=== PATIENT | female | born 1980 | race American Indian/Alaskan Native ===

== ENCOUNTER 2018-04-02 09:31 | Emergency (ER) | payer OTHER ==
[~2018-04-02] VITALS: Ht 157.5 cm; Wt 70.3 kg
[~2018-04-02 09:31] MED LIST: CYCLOBENZAPRINE10 MG PO; CYCLOBENZAPRINE5 MG PO; HYDROCODON-ACE1 EAC8 PO; IBUPROFEN600 MG PO; MELOXICAM7.5 MG PO; METRONIDAZOLE500 MG PO; NORCO 7.5-3251 EACH PO; PERCOCET 5-3251 EACH PO; ZOFRAN ODT4 MG PO
--- OUTSIDE RECORDS SUMMARY | 2018-04-02 09:36 | XMS ---
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 Care History Medical/Surgical 03/22/2018 [facility] - Patient is currently established with [facility]. If patient is seen in the ED during business hours. Please contact CHWs at [facility]. Care Recommendation: This patient has had 5 or more Emergency Department visits in the last 12 months.\T\nbsp; Patient requires education on the scope and purpose of the ED as an acute care provider not a Primary Care Provider and should not be utilized for chronic conditions.\T\nbsp; These are guidelines and the provider should exercise clinical judgment when providing care. E.D. V[facility] (12 MO.) [facility] TOTAL 5 NOTE: Visits indicate total known visits. ED/UCC VISIT TRACKING (12 MO.) 04/02/2018 09:31 NILAM Domingo [place] TYPE: Emergency COMPLAINT: - ABD PAIN WITHOUT BM 03/19/2018 13:20 [facility] Alexandra CANO TYPE: Emergency DIAGNOSES: - Fall - Wedge compression fracture of unspecified lumbar vertebra, initial encounter for closed fracture - Sprain of unspecified ligament of left ankle, initial encounter 03/19/2018 08:54 NILAM Cortes TYPE: Emergency COMPLAINT: - FALL,LOW BACK PAIN DIAGNOSES: - Nicotine dependence, unspecified, uncomplicated - Strain of muscle, fascia and tendon of lower back, initial encounter - Allergy status to penicillin - Low back pain - Sprain of unspecified ligament of left ankle, initial encounter - Other prison (current) drug therapy - Allergy status to narcotic agent status - Fall (on) (from) unspecified stairs and steps, initial encounter 03/02/2018 19:09 NILAM Cortes TYPE: Emergency COMPLAINT: - ABD PAIN DIAGNOSES: - Unspecified abdominal pain - Allergy status to narcotic agent status - Allergy status to penicillin - Nicotine dependence, unspecified, uncomplicated - Other prison (current) drug therapy [facility] DIAGNOSES: - Unspecified abdominal pain - Diarrhea (Adult) - Noninfective gastroenteritis and colitis, unspecified - diarrhea,abd pain,V - Nausea - Emesis - Abdominal Pain INPATIENT VISIT TRACKING (12 MO.) No inpatient visits to display in this time frame [email or web address]
[2018-04-02] MEDS ORDERED: GABAPENTIN400 MG PO (09:45)
== END 2018-04-02 12:38 | disposition home or self-care (01) ==
LOC: ED 09:31
DX: K59.00 Constipation, unspecified (principal); F17.200 Nicotine dependence, unspecified, uncomplicated; Z88.5 Allergy status to narcotic agent; Z88.0 Allergy status to penicillin; Z79.899 Other long term (current) drug therapy
CPT/HCPCS: 74018; 80053; 81001; 83690; 84703; 85025; 96374; 99283-25; 99406; J1885

== ENCOUNTER 2019-02-02 11:49 | Emergency (ER) | payer OTHER ==
[~2019-02-02] VITALS: Ht 157.5 cm; Wt 48.1 kg
--- OUTSIDE RECORDS SUMMARY | ~2019-02-02 | XMS | Encounter Summary ---
Demographics + + + | Address | [address] | | | [place] [address] | + + + | Home Phone | | + + + | Preferred Language | Unknown | + + + | Marital Status | | + + + | Druze Affiliation | Unknown | + + + | Race | Unknown | + + + | Ethnic Group | Unknown | + + + Author + + + | Author | [facility] | | | and [place] | + + + | Organization | [facility] | | | and [place] | + + + | Address | Unknown | + + + | Phone | Unavailable | + + + Support + + + + + | Name | Relationship | Address | Phone | + + + + + | Lincoln Perrin | ECON | [address] | | | | | [place] | | | | | [address] | | + + + + + Care Team Providers + +------+ + | Care Bander Hand Name | Role | Phone | + +------+ + | Margarita Rocha MD | PCP | | + +------+ + Reason for Visit + + + | Reason | Comments | + + + | Medication Refill | | + + + Encounter Details +--------+--------+ + + + | Date | Type | Department | Care Team | Description | +--------+--------+ + + + | 11/15/ | Refill | [facility] | Nnamdi Garcia | Medication Refill | | 2019 | | GASTROENTEROLOGY | MD Anthony [address] | | | | | [address] [place] | [address] [place] | | | | | [address] [place], [place] | [place] [address] | | | | | [address] | [phone] | | | | | [phone] | | | +--------+--------+ + + + Social History + + + +--------+------+ | Tobacco Use | Types | Packs/Day | Years | Date | | | | | Used | | + + + +--------+------+ | Current Every Day | Cigarettes | 0.5 | | | | Smoker | | | | | + + + +--------+------+ + +---+---+---+ | Smokeless Tobacco: | | | | | Current User | | | | + +---+---+---+ + + +---------+ + | Alcohol Use | Drinks/We | oz/Week | Comments | | | ek | | | + + +---------+ + | No | | | | + + +---------+ + + + + | Sex Assigned at | Date Recorded | | | | + + + | Not on file | | + + + + + + + | Job Start Date | Occupation | Industry | + + + + | Not on file | Not on file | Not on file | + + + + + + + + | Travel History | Travel Start | Travel End | + + + + + + | No recent travel history available. | + + documented as of this encounter Plan of Treatment Not on filedocumented as of this encounter Visit Diagnoses + + | Diagnosis | + + | Crohn's disease of colon without complication (HCC) | + + documented in this encounter"
--- OUTSIDE RECORDS SUMMARY | ~2019-02-02 | XMS | Encounter Summary ---
Demographics + + + | Address | [address] | | | [place] [address] | + + + | Home Phone | | + + + | Preferred Language | Unknown | + + + | Marital Status | | + + + | Anabaptism Affiliation | Unknown | + + + | Race | Unknown | + + + | Ethnic Group | Unknown | + + + Author + + + | Author | [facility] | | | and [place] | + + + | Organization | [facility] | | | and [place] | + + + | Address | Unknown | + + + | Phone | Unavailable | + + + Support + + + + + | Name | Relationship | Address | Phone | + + + + + | Lincoln Perrin | ECON | [address] | | | | | [place] | | | | | [address] | | + + + + + Care Team Providers + +------+ + | Care Coupon And Bond Collection Clerk Name | Role | Phone | + +------+ + | Margarita Rocha MD | PCP | | + +------+ + Reason for Visit +--------+ + | Reason | Comments | +--------+ + | Other | | +--------+ + Encounter Details +--------+ + + + + | Date | Type | Department | Care Team | Description | +--------+ + + + + | 01/20/ | Telephone | [facility] | Nnamdi Garcia | Other | | 2019 | | GASTROENTEROLOGY | MD Anthony [address] | | | | | [address] [place] | [address] [place] | | | | | [address] [place], [place] | [place] [address] | | | | | [address] | [phone] | | | | | [phone] | | | +--------+ + + + + Social History + + [...] filedocumented as of this encounter Visit Diagnoses Not on filedocumented in this encounter"
--- OUTSIDE RECORDS SUMMARY | ~2019-02-02 | XMS | Clinical Summary ---
Demographics + + + | Address | [address] | | | [place] [address] | + + + | Home Phone | | + + + | Preferred Language | Unknown | + + + | Marital Status | | + + + | Protestant Affiliation | Unknown | + + + | Race | Unknown | + + + | Ethnic Group | Unknown | + + + Author + + + | Author | [facility] | | | and [place] | + + + | Organization | [facility] | | | and [place] | + + + | Address | Unknown | + + + | Phone | Unavailable | + + + Support + + + + + | Name | Relationship | Address | Phone | + + + + + | Lincoln Perrin | ECON | [address] | | | | | [place] | | | | | [address] | | + + + + + Care Team Providers + +------+ + | Care Inclusion Paraeducator Name | Role | Phone | + +------+ + | Margarita Rocha MD | PCP | | + +------+ + Allergies + + + + + + | Active Allergy | Reactions | Severity | Noted | Comments | | | | | Date | | + + + + + + | Codeine | Nausea And Vomiting, | Low | 12/23/19 | High fever | | | Rash | | 18 | | + + + + + + | Penicillins | Hives | Low | 12/23/19 | | | | | | 18 | | + + + + + + Medications + + + +---------+------+------+-------+ | Medication | Sig | Dispensed | Refills | Star | End | Statu | | | | | | t | Date | s | | | | | | Date | | | + + + +---------+------+------+-------+ | mesalamine | Take 4 tablets by | 120 | 2 | 11/04 | | Activ | | (LIALDA) 1.2 g EC | mouth Daily. | tablet | | 05/26 | | e | | tabletIndications: | | | | 19 | | | | Crohn's disease of | | | | | | | | colon without | | | | | | | | complication (HCC) | | | | | | | + + + +---------+------+------+-------+ Active Problems + + + | Problem | Noted Date | + + + | Epigastric pain | 04/21/2018 | + + + | Crohn's colitis, without complications | 04/21/2018 | + + + | Smoker - Daily | 03/22/2018 | + + + | Marijuana use | 03/22/2018 | + + + | Chronic abdominal pain | 03/08/2018 | + + + | Chronic diarrhea | 03/08/2018 | + + + | Intractable cyclical vomiting with nausea | 03/08/2018 | + + + | Migraine with aura and with status migrainosus, not intractable | 03/08/2018 | + + + Encounters +--------+ + + + + | Date | Type | Specialty | Care Team | Description | +--------+ + + + + | 01/21/ | Telephone | Gastroenterology | Nnamdi Garcia | Referral (IBD clinic | | 2018 | | | MD Anthony | ) | +--------+ + + + + | 01/20/ | Telephone | Gastroenterology | Nnamdi Garcia | Other | | 2018 | | | MD Anthony | | +--------+ + + + + | 11/15/ | Refill | Gastroenterology | Nnamdi Garcia | Medication Refill | | 2018 | | | MD Anthony | | +--------+ + + + + from Last 3 Months Social History + + + +--------+------+ | [...] recent travel history available. | + + Last Filed Vital Signs + + + + | Vital Sign | Reading | Time Taken | + + + + | Blood Pressure | 88/58 | 06/24/2018 1250 PDT | + + + + | Pulse | 78 | 06/24/2018 1250 PDT | + + + + | Temperature | 36.9 C (98.5 F) | 06/24/2018 1250 PDT | + + + + | Respiratory Rate | 16 | 06/24/2018 1250 PDT | + + + + | Oxygen Saturation | 100% | 06/24/2018 1250 PDT | + + + + | Inhaled Oxygen | - | - | | Concentration | | | + + + + | Weight | 55.7 kg (122 lb 12.7 | 06/24/2018 1250 PDT | | | oz) | | + + + + | Height | 157.5 cm (5' 2") | 06/24/2018 1250 PDT | + + + + | Body Mass Index | 22.46 | 06/24/2018 1250 PDT | + + + + Plan of Treatment + + + + + | Health Maintenance | Due Date | Last Done | Comments | + + + + + | Cervical Cancer | | | | | Screening (Pap) | 0 | | | + + + + + | Vaccine: Influenza | | 01/07/2017, 01/21/2016, | | | (#1) | 9 | 01/25/2014 | | + + + + + | Vaccine: | | 01/16/2012, 01/18/1985, | | | Dtap/Tdap/Td (6 - | 2 | 05/31/1980, Additional history | | | Td) | | exists | | + + + + + | Vaccine: | Completed | 01/16/2012 | | | Pneumococcal 19-64 | | | | | (PPSV23 only) Medium | | | | | Risk | | | | + + + + + Results Not on filefrom Last 3 Months Insurance + +--------+ +--------+ +---------+--------+ | Payer | Benefi | Subscriber | Effect | Phone | Address | Type | | | t Plan | ID | avani | | | | | | / | | Dates | | | | | | Group | | | | | | + +--------+ +--------+ +---------+--------+ | [place] | MEDICA | [id number] | | [phone] | | Medica | | | [place] | | [id number]-[id number] | 2 | | id | | | PLUS | | esent | | | | + +--------+ +--------+ +---------+--------+ + +--------+ +--------+ + + | Guarantor Name | Accoun | Relation to | Date | Phone | Billing Address | | | t Type | Patient | of | | | | | | | | | | + +--------+ +--------+ + + | Jayda Mitchell | Person | Self | [birth year] | [address] | | [place] | al/Fam | | 1981 | [phone] | [place] [address] | | | [place] | | | 4 (Home) | | + +--------+ +--------+ + + Advance Directives Patient has advance care planning documents on file. For more information, please contact:[facility] [place] [address]
--- OUTSIDE RECORDS SUMMARY | ~2019-02-02 | XMS | Encounter Summary ---
Demographics + + + | Address | [address] | | | [place] [address] | + + + | Home Phone | | + + + | Preferred Language | Unknown | + + + | Marital Status | | + + + | Jewish Affiliation | Unknown | + + + | Race | Unknown | + + + | Ethnic Group | Unknown | + + + Author + + + | Author | [facility] | | | and [place] | + + + | Organization | [facility] | | | and [place] | + + + | Address | Unknown | + + + | Phone | Unavailable | + + + Support + + + + + | Name | Relationship | Address | Phone | + + + + + | Lincoln Perrin | ECON | [address] | | | | | [place] | | | | | [address] | | + + + + + Care Team Providers + +------+ + | Care Place Change Roof Bolter Name | Role | Phone | + +------+ + | Margarita Rocha MD | PCP | | + +------+ + Reason for Visit + + + | Reason | Comments | + + + | Referral | IBD clinic | + + + Encounter Details +--------+ + + + + | Date | Type | Department | Care Team | Description | +--------+ + + + + | 01/21/ | Telephone | [facility] [place] | Nnamdi Garcia | Referral (IBD clinic | | 2019 | | GASTROENTEROLOGY | MD Anthony [address] | ) | | | | [address] [place] | [address] [place] | | | | | [address] [place], [place] | [place] [address] | | | | | [address] | [phone] | | | | | [phone] | | | +--------+ + + + [...]
--- OUTSIDE RECORDS SUMMARY | ~2019-02-02 | XMS | Encounter Summary ---
Demographics + + + | Address | [address] | | | [place] [address] | + + + | Home Phone | | + + + | Preferred Language | Unknown | + + + | Marital Status | | + + + | Restorationist Affiliation | Unknown | + + + | Race | Unknown | + + + | Ethnic Group | Unknown | + + + Author + + + | Author | [facility] | | | and [place] | + + + | Organization | [facility] | | | and [place] | [...] | [place] | | | | | [address] | | + + + + + Care Team Providers + +------+ + | Care Lifter Name | Role | Phone | + [...] [place] | | | | | [address] [place], [place] | [place] [address] | | | | | [address] | [phone] | | | | | [phone] | | | +--------+--------+ + + + [...]
--- OUTSIDE RECORDS SUMMARY | ~2019-02-02 | XMS | Clinical Summary ---
Demographics + + + | Address | [address] | | | [place] [address] | + + + | Home Phone | | + + + | Preferred Language | Unknown | + + + | Marital Status | | + + + | Temple Affiliation | Unknown | + + + | Race | Unknown | + + + | Ethnic Group | Unknown | + + + Author + + + | Author | [facility] | | | and [place] | + + + | Organization | [facility] | | | and [place] [...] | [place] | | | | | [address] | | + + + + + Care Team Providers + +------+ + | Care Dice Table Person Name | Role | Phone | + [...] +---------+--------+ | [place] | MEDICA | [id number] | | [phone] | | Medica | | | ID [...] | Self | [birth year] | [address] | | [place] | al/Fam | | 1981 | [phone] | [place] [address] | | | [place] | | | 4 (Home) | | + +--------+ +--------+ + + Advance Directives Patient has advance care planning documents on file. For more information, please contact:[facility] [place] [address]
--- OUTSIDE RECORDS SUMMARY | ~2019-02-02 | XMS | Encounter Summary ---
Demographics + + + | Address | [address] | | | [place] [address] | + + + | Home Phone | | + + + | Preferred Language | Unknown | + + + | Marital Status | | + + + | Sikh Affiliation | Unknown | + + + | Race | Unknown | + + + | Ethnic Group | Unknown | + + + Author + + + | Author | [facility] | | | and [place] | + + + | Organization | [facility] | | | and [place] [...] [place] | | | | | [address] | | + + + + + Care Team Providers + +------+ + | Care Water Safety Teacher Name | Role | Phone | + [...] [place] | | | | | [address] [place], [place] | [place] [address] | | | | | [address] | [phone] | | | | | [phone] | | | +--------+ + + + [...]
--- OUTSIDE RECORDS SUMMARY | ~2019-02-02 | XMS | Encounter Summary ---
Demographics + + + | Address | [address] | | | [place] [address] | + + + | Home Phone | | + + + | Preferred Language | Unknown | + + + | Marital Status | | + + + | Episcopal Affiliation | Unknown | + + + | Race | Unknown | + + + | Ethnic Group | Unknown | + + + Author + + + | Author | [facility] | | | and [place] | + + + | Organization | [facility] | | | and [...] | [place] | | | | | [address] | | + + + + + Care Team Providers + +------+ + | Care Video Editor Name | Role | Phone | + [...] [place] | | | | | [address] [place], [place] | [place] [address] | | | | | [address] | [phone] | | | | | [phone] | | | +--------+ + + + [...]
[~2019-02-02 11:49] MED LIST changes: +GABAPENTIN400 MG PO
--- OUTSIDE RECORDS SUMMARY | 2019-02-02 11:52 | XMS ---
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 Care History Medical/Surgical 03/22/2018 [facility] - Patient is currently established with [facility]. If patient is seen in the ED during business hours. Please contact CHWs at [facility]. Care Recommendation: This patient has had 5 [...] providing care. E.D. VISIT COUNT (12 MO.) 1 Madelaine Perez Mary Stephanie 4 [facility] TOTAL 5 NOTE: Visits indicate total known visits. ED/UCC VISIT TRACKING (12 MO.) 02/02/2019 11:50 NILAM Domingo [place] TYPE: Emergency COMPLAINT: - ABD PAIN 04/02/2018 09:31 NILAM Domingo [place] TYPE: Emergency COMPLAINT: - ABD PAIN WITHOUT BM DIAGNOSES: - Constipation, unspecified - Generalized abdominal pain - Other terminal gauger (current) drug therapy - Allergy status to penicillin - Allergy status to narcotic agent status - Nicotine dependence, unspecified, uncomplicated 03/19/2018 13:20 [facility] Alexandra BlackPatric CANO TYPE: Emergency DIAGNOSES: - Fall - Wedge compression fracture of unsp lumbar vertebra, init - Sprain of unspecified ligament of left ankle, init encntr 03/19/2018 08:54 NILAM Cortes TYPE: Emergency COMPLAINT: - FALL,LOW BACK PAIN DIAGNOSES: - Nicotine dependence, unspecified, uncomplicated - Strain of muscle, fascia and tendon of lower back, init - Allergy status to penicillin - Low back pain - Sprain of unspecified ligament of left ankle, init encntr - Other terminal gauger (current) drug therapy - Allergy status to narcotic agent status - Fall (on) (from) unspecified stairs and steps, init encntr 03/02/2018 19:09 NILAM Domingo [place] TYPE: Emergency COMPLAINT: - ABD PAIN DIAGNOSES: - Unspecified abdominal pain - Allergy status to narcotic agent status - Allergy status to penicillin - Nicotine dependence, unspecified, uncomplicated - Other intermediate (current) drug therapy INPATIENT VISIT TRACKING (12 MO.) No inpatient visits to display in this time frame [id number]
[2019-02-02] MEDS ORDERED: DICYCLOMINE HCL20 MG PO (13:41)
[2019-02-02] MEDS ORDERED: ONDANSETRON ODT8 MG PO (14:36)
[2019-02-02] MEDS ORDERED: PREDNISONE20 MG PO (14:36)
== END 2019-02-02 14:57 | disposition home or self-care (01) ==
LOC: ED 11:49
DX: R10.11 Right upper quadrant pain (principal); F17.200 Nicotine dependence, unspecified, uncomplicated; Z88.5 Allergy status to narcotic agent; Z88.0 Allergy status to penicillin; Z79.899 Other long term (current) drug therapy
CPT/HCPCS: 76705; 80053; 81001; 83690; 84703; 85025; 96361; 96374; 96375; 99284-25; 99406; J2405; J2930; J3010; J7030

== ENCOUNTER 2020-10-30 15:23 | Emergency (ER) | payer OTHER ==
[~2020-10-30] VITALS: Ht 157.5 cm; Wt 53.1 kg
[~2020-10-30 15:23] MED LIST changes: +DICYCLOMINE HCL20 MG PO; +ONDANSETRON ODT8 MG PO; +PREDNISONE20 MG PO
== END 2020-10-30 17:30 | disposition home or self-care (01) ==
LOC: ED 15:23
DX: R20.8 Other disturbances of skin sensation (principal); T50.B95A Adverse effect of other viral vaccines, initial encounter; F17.200 Nicotine dependence, unspecified, uncomplicated; Z88.5 Allergy status to narcotic agent; Z88.0 Allergy status to penicillin
CPT/HCPCS: 96374; 96375; 99283-25; J1200; J2405

== ENCOUNTER 2021-05-10 15:17 | Emergency (ER) | payer OTHER ==
[~2021-05-10] VITALS: Ht 157.5 cm; Wt 54.4 kg
== END 2021-05-10 18:00 | disposition home or self-care (01) ==
LOC: ED 15:17
DX: U07.1 COVID-19 (principal); Z23 Encounter for immunization; K50.90 Crohn's disease, unspecified, without complications; F17.200 Nicotine dependence, unspecified, uncomplicated; Z88.5 Allergy status to narcotic agent; Z88.0 Allergy status to penicillin
CPT/HCPCS: 99283-25; A9270; M0247

== ENCOUNTER 2021-10-14 14:20 | Emergency (ER) | payer OTHER ==
[~2021-10-14] VITALS: Ht 157.5 cm; Wt 54.4 kg
[2021-10-14] MEDS ORDERED: ONDANSETRON ODT8 MG PO (15:15)
[2021-10-14] MEDS ORDERED: ULTRAM50 MG PO (20:59)
[2021-10-14] MEDS ORDERED: ONDANSETRON ODT4 MG PO (20:59)
== END 2021-10-14 21:21 | disposition home or self-care (01) ==
LOC: ED 14:20
DX: S70.02XA Contusion of left hip, initial encounter (principal); S16.1XXA Strain of muscle, fascia and tendon at neck level, initial encounter; S63.502A Unspecified sprain of left wrist, initial encounter; Y04.2XXA Assault by strike against or bumped into by another person, initial encounter; F17.200 Nicotine dependence, unspecified, uncomplicated; Z88.0 Allergy status to penicillin; Z88.5 Allergy status to narcotic agent
CPT/HCPCS: 36415; 70450; 72125; 72192; 73110; 84703; 85025; 96372; 99284-25; A9270; J1885

== ENCOUNTER 2023-11-12 07:55 | Day surgery (SDC) | payer OTHER ==
[2023-11-09 15:30] VITALS: BP 108/71
[~2023-11-12] VITALS: Ht 157.5 cm; Wt 62.3 kg
--- NOTE | ~2023-11-12 | OR ---
[facility] [address], [place] [address] Draft DATE OF OPERATION: 11/12/2023 SURGEON: Lisbeth Hendrickson MD PREOPERATIVE DIAGNOSES: 1. Probable colonic polyps at [facility]. 2. Diverticulosis. 3. Possible mild Crohn's disease, now in remission. 4. Chronic history of generalized abdominal pain with diarrhea and constipation. POSTOPERATIVE DIAGNOSES: 1. Tortuous sigmoid colon. 2. Minimal to moderate sigmoid diverticulosis. 3. Minimal internal hemorrhoids. PROCEDURE: Colonoscopy without biopsy. ESTIMATED BLOOD LOSS: None. INDICATIONS: Jayda is a 43-year-old female, asked to see me for a colonoscopy. 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 She was having a lot of abdominal pain, diarrhea, and constipation. She went to see her professional services consultant, Dr. Nnamdi Garcia in 2018 at the age of 37. Her stomach was not particularly concerning. She had a small area of mild inflammation in the sigmoid colon. She had mild colitis with crypt atrophy. She tried budesonide, but apparently it gave her side effects. She was transitioned to mesalamine. She seemed to do much better in that regard. Her professional services consultant had moved out of the country. She was therefore referred to the Infl[facility] Disease [facility] at [facility]. She underwent a colonoscopy in 1999 at the age of 39 and again in 2021 at the age of 41 with our [facility]. She remembers being told she had diverticulosis. She is quite certain some polyps have been removed. However, Crohn's disease was quite mild and she seemed better, so her mesalamine was discontinued. She tells me she had a 2 cm hiatal hernia and she thinks it has healed itself. She frequently has epigastric and right upper quadrant abdominal pain. She can be constipated but seems to be improved at this time. She has also been through a lot of counseling for posttraumatic stress disorder associated with her . She has been using some Xanax and hydroxyzine with good results. She was therefore asked to see me with respect PATIENT NAME: JAYDA JOHNSON OPERATIVE REPORT DATE OF : 78 REPORT #: [id number] PHYSICIAN: LISBETH HENDRICKSON MD PCP: BRISEIDA NORRIS [facility] REPORT IS CONFIDENTIAL AND NOT TO BE RELEASED WITHOUT AUTHORIZATION [facility] [address], [place] [address] Draft to the above as a local general surgeon for followup colonoscopy. She is quite familiar with colonoscopy. There is risk including, but not limited to gas bloating, crampy abdominal pain, bleeding, perforation requiring surgery, and missed diagnosis. We also reviewed the written instructions for a bowel prep line by line. Also with her medications, we asked for monitored anesthesia care with propofol infusion. That worked out very nicely for her today. We sent her for preoperative blood work. White count was normal along with her hemoglobin and platelet count. Her BUN and creatinine were normal. Her liver function tests were normal. Albumin was normal and her C-reactive protein was less than 0.50. She also understands the need to have an adult person take her home afterwards. She had expressed understanding and wished to proceed. DESCRIPTION OF PROCEDURE: Jayda was taken into our endoscopy suite and placed in the left lateral decubitus position. She was given monitored anesthesia care with propofol infusion per our nurse rn teacher. A digital rectal exam was performed and this was unremarkable. She had good perianal hygiene. No evidence of any fistula tracts. There were no external hemorrhoids. There were no masses. The adult colonoscope was introduced and advanced under direct visualization of the camera. She indeed has a tortuous sigmoid colon. That took a few minutes with some increased propofol and some mild abdominal compression in order to get the scope through that area. After that, the scope passed nicely up into the cecum itself. Her prep was quite excellent. We could easily see the appendiceal orifice and the ileocecal valve. The scope was slowly withdrawn. We took multiple pictures throughout for photodocumentation. She had no inflammatory changes throughout her entire colon or rectum. She does have diverticula in the sigmoid colon. They are small to moderate in size, few in number and scattered about. Once in the rectum, the scope was retroflexed and she has very minimal internal hemorrhoid tissue. After this, the gas was suctioned out and the colonoscope removed. Jayda tolerated the procedure quite well. RECOMMENDATIONS: Jayda is welcome to follow up in 5 years for repeat colonoscopies, in fact she had adenomatous polyps removed at [facility] and [facility]. We are still waiting on those records. Lisbeth Hendrickson MD ALB/MODL /[id number] PATIENT NAME: JAYDA JOHNSON OPERATIVE REPORT DATE OF : 78 REPORT #: [id number] PHYSICIAN: LISBETH HENDRICKSON MD PCP: BRISEIDA NORRIS REPORT IS CONFIDENTIAL AND NOT TO BE RELEASED WITHOUT AUTHORIZATION [facility] [address] [place], [place] [address] Draft cc: MD Briseida Giang NP Copies: LISBETH HENDRICKSON MD ~ PATIENT NAME: JAYDA JOHNSON OPERATIVE REPORT DATE OF : 78 REPORT #: [id number] PHYSICIAN: LISBETH HENDRICKSON MD PCP: BRISEIDA NORRIS REPORT IS CONFIDENTIAL AND NOT TO BE RELEASED WITHOUT AUTHORIZATION
[~2023-11-12 07:55] MED LIST changes: +IBLOOD GLUCOSE TEST STRIP 1 EA TEST VI PRN; +LACTATED RINGER'S 1,000 ML IV SCH; +LIDOCAINE HCL 1% 5 ML SDV INJ ONE; +MIDAZOLAM HCL 5 MG/5 ML VIAL IV PRN; +ONDANSETRON ODT4 MG PO; +ULTRAM50 MG PO; +fentaNYL citrate 100 MCG/2 ML VIAL IV PRN
[2023-11-12] MEDS ORDERED: propofoL 200 MG/20 ML VIAL ONE ×2 (08:28→09:33)
[2023-11-12 08:36] VITALS: BP 92/55
--- NOTE | 2023-11-12 10:01 | NUR ---
11/12/23 1001 Ashley Olguin 0947-PT TO PACU IN LL POSITION. EYES CLOSED. DOES NOT FOLLOW COMMANDS. BREATHING EASY AND UNLABORED. SPO2 >95% ON 6 L O2 VIA SIMPLE MASK. 0953- PT OPENS EYES TO VERBAL AND TACTILE STIMULI BUT FALLS QUICKLY BACK TO SLEEP. BREATHING EASY AND UNLABORED. SPO2 >95% O2 TITRATED DOWN TO ROOM AIR. 1000-PT COMPLAINING OF GAS PAIN, PT REMAINS DROWSY BUT IS ABLE TO REPOSITION SELF TO RL POSITION. BREATHING EASY AND UNLABORED. SPO2 >95% ON ROOM AIR.
[2023-11-12 11:02] VITALS: BP 85/69
== END 2023-11-12 10:47 | disposition home or self-care (01) ==
LOC: OPS 07:55 → DS 07:55 → OPS 09:00 → DS 09:00 → OPS 10:47
PROVIDERS: ATTEND Colon & Rectal Surgery
PROC: 0DJD8ZZ Inspection of Lower Intestinal Tract, Via Natural or Artificial Opening Endoscopic (ICD-10-PCS; principal; 2023-11-12 09:00)
DX: K57.30 Diverticulosis of large intestine without perforation or abscess without bleeding (principal); K64.8 Other hemorrhoids; Q43.8 Other specified congenital malformations of intestine; Z86.010 Personal history of colon polyps; F41.0 Panic disorder [episodic paroxysmal anxiety]; F43.10 Post-traumatic stress disorder, unspecified; F17.200 Nicotine dependence, unspecified, uncomplicated; Z88.0 Allergy status to penicillin; Z88.1 Allergy status to other antibiotic agents; Z88.5 Allergy status to narcotic agent; Z88.6 Allergy status to analgesic agent; Z79.899 Other long term (current) drug therapy
CPT/HCPCS: J2704; J7121